=== PATIENT | male | born 1960 | race Caucasian/White ===

== ENCOUNTER 2017-02-06 16:32 | Emergency (ER) | payer OTHER ==
[2017-02-06] MEDS ORDERED: Sodium Chloride 0.9% 10 ML Syringe FLUSH PRN (17:33)
[2017-02-06] MEDS ORDERED: Sodium Chloride 0.9% 1,000 ML IV ONE (17:39)
[2017-02-06 18:11] LABS: CHLORIDE,CL 103 mmol/L (101-111); SODIUM,NA 137 mmol/L (135-145)
--- NOTE | 2017-02-06 18:49 | EDM.PDOC ---
Scribed by Linette Redding 02/06/17 1838 for Kinjal Miranda NP ED HPI GENERAL MEDICAL PROBLEM - General Chief Complaint: Medication Administration Stated Complaint: LAB LEVELS TOO HIGH Time Seen by Provider: 02/06/17 17:25 Source of Information: Reports: Patient, RN, RN Notes Reviewed History Limitations: Reports: No Limitations - History of Present Illness INITIAL COMMENTS - FREE TEXT/NARRATIVE: Patient presents to the ER stating he was called by [facility] and told to come to the ER immediately for elevated labs. He states he doctors in [place] with rheumatology and takes Methotrexate and folic acid. Onset: Today Severity: Moderate Improves with: Reports: None Worsens with: Reports: None Associated Symptoms: Reports: No Other Symptoms - Related Data Allergies Allergy/AdvReac Type Severity Reaction Status Date / Time rofecoxib Allergy Diarrhea Verified 03/02/13 06:21 Home Meds: Home Meds Aspirin/Calcium Carbonate/Mag [Aspirin Buffered 325 mg Tab] 325 mg PO DAILY [History] Naproxen Sodium [Aleve] 220 mg PO DAILY 03/02/13 [History] Naproxen Sodium [Aleve] 220 mg PO DAILY 03/02/13 [History] Temazepam [Restoril] 30 mg PO BEDTIME 03/02/13 [History] Valsartan [Diovan] 160 mg PO DAILY 03/02/13 [History] atorvaSTATin [Lipitor] 10 mg PO BEDTIME 03/02/13 [History] Past Medical History Cardiovascular History: Reports: High Cholesterol, Hypertension Musculoskeletal History: Reports: Back Pain, Chronic, Osteoarthritis - Past Surgical History Neurological Surgical History: Reports: Lumbar Spine, Spinal Fusion Social & Family History - Family History Family Medical History: Noncontributory - Tobacco Use Smoking Status *Q: Current Every Day Smoker Years of Tobacco use: 35 Packs/Tins Daily: 0.5 - Caffeine Use Caffeine Use: Reports: Coffee, Soda - Recreational Drug Use Recreational Drug Use: No - Living Situation & Occupation Living situation: Reports: with Family, Occupation: Retired ED ROS GENERAL - Review of Systems Review Of Systems: ROS reveals no pertinent complaints other than HPI. ED EXAM, GENERAL - Physical Exam Exam: See Below Exam Limited By: No Limitations General Appearance: Alert, WD/WN, No Apparent Distress Eye Exam: Bilateral Eye: Normal Inspection Ears: Normal External Exam, Normal Canal, Hearing Grossly Normal, Normal TMs Nose: Normal Inspection, Normal Mucosa, No Blood Throat/Mouth: Normal Inspection, Normal Lips, Normal Teeth, Normal Gums, Normal Oropharynx, Normal Voice, No Airway Compromise Head: Atraumatic, Normocephalic Neck: Normal Inspection, Supple, Non-Tender, Full Range of Motion Respiratory/Chest: No Respiratory Distress, Lungs Clear, Normal Breath Sounds, No Accessory Muscle Use, Chest Non-Tender Cardiovascular: Normal Peripheral Pulses, Regular Rate, Rhythm, No Edema, No Gallop, No JVD, No Murmur, No Rub GI/Abdominal: Normal Bowel Sounds, Soft, Non-Tender, No Organomegaly, No Distention, No Abnormal Bruit, No Mass (Male) Exam: Deferred Rectal (Males) Exam: Deferred Back Exam: Normal Inspection, Full Range of Motion, NT Extremities: Normal Inspection, Normal Range of Motion, Non-Tender, Normal Capillary Refill, No Pedal Edema Neurological: Alert, Oriented, CN II-XII Intact, Normal Cognition, Normal Gait, Normal Reflexes, No Motor/Sensory Deficits Psychiatric: Normal Affect, Normal Mood Skin Exam: Warm, Dry, Intact, Normal Color, No Rash Lymphatic: No Adenopathy EKG INTERPRETATION EKG Date: 02/06/17 Time: 17:49 Rhythm: NSR Rate (Beats/Min): 60 [place]: Normal P-Wave: Present QRS: Normal ST-T: Normal QT: Normal Comparison: NA - No Prior EKG Course - Vital Signs Last Recorded V/S: Last Vital Signs Temp 97.9 F 02/06/17 16:51 Pulse 87 02/06/17 16:51 Resp 18 02/06/17 16:51 BP 143/72 H 02/06/17 16:51 Pulse Ox 97 02/06/17 16:51 - Orders/Labs/Meds Orders: Active Orders 24 hr Category Date Time Status EKG Documentation Completion [RC] STAT Care 02/06/17 17:33 Active Peripheral IV Care [RC] . DIRECTED Care 02/06/17 17:34 Active Sodium Chloride 0.9% [Saline Flush] Med 02/06/17 17:33 Active 10 ml FLUSH ASDIRECTED PRN Peripheral IV Insertion Adult [OM.PC] Stat Oth 02/06/17 17:33 Ordered Medication Orders Sodium Chloride (Saline Flush) 10 ml FLUSH ASDIRECTED PRN PRN Reason: Keep Vein Open Labs: Laboratory Tests 02/06/17 02/06/17 Range/Units 17:45 17:45 WBC 11.2 H (5.0-10.0) 10^3/uL RBC 5.24 (4.6-6.2) 10^6/uL Hgb 15.8 (14.0-18.0) g/dL Hct 46.5 (40.0-54.0) % MCV 88.7 D (80-100) fL MCH 30.2 (27.0-34.0) pg MCHC 34.0 (33.0-35.0) g/dL Plt Count 199 (150-450) 10^3/uL Neut % (Auto) 65.1 (42.2-75.2) % Lymph % (Auto) 22.9 (20.5-50.1) % [place] % (Auto) 9.7 H (2-8) % Eos % (Auto) 1.9 (1.0-3.0) % Baso % (Auto) 0.4 (0.0-1.0) % Sodium 137 (135-145) mmol/L Potassium 4.0 (3.6-5.0) mmol/L Chloride 103 (101-111) mmol/L Carbon Dioxide 24.0 (21.0-31.0) mmol/L Anion Gap 14.0 BUN 19 H (7-18) mg/dL Creatinine 1.0 (0.6-1.3) mg/dL Est Cr Clr Drug Dosing 96.24 mL/min Estimated GFR (MDRD) > 60 BUN/Creatinine Ratio 19.00 Glucose 130 H (74-105) mg/dL Calcium 10.2 (8.4-10.2) mg/dl Total Bilirubin 0.6 (0.2-1.0) mg/dL AST 28 (10-42) IU/L ALT 38 (10-60) IU/L Alkaline Phosphatase 86 (42-121) IU/L Total Protein 6.5 L (6.7-8.2) g/dl Albumin 4.1 (3.2-5.5) g/dl Globulin 2.4 Albumin/Globulin Ratio 1.71 Meds: Medications Generic Name Dose Route Start Last Admin Trade Name Freq PRN Reason Stop Dose Admin Sodium Chloride 10 ml 12/28/17 17:33 Saline Flush FLUSH ASDIRECTED PRN Keep Vein Open Discontinued Medications Generic Name Dose Route Start Last Admin Trade Name Nathalie PRN Reason Stop Dose Admin Sodium Chloride 1,000 mls @ 999 mls/hr 02/06/17 17:39 02/06/17 17:49 Normal Saline IV 02/06/17 18:39 999 mls/hr .BOLUS ONE Administration - Re-Assessments/Exams Free Text/Narrative Re-Assessment/Exam: 02/06/17 18:44 1745 [facility] call called. Rheumatology gone for the day. Discussed the case with Hospitalist Dr. Salas. He advised that an EKG be completed and labs drawn again. He requested that he be called back when labs were completed. He concurred that 1 L of NS could be given. 1835: [facility] call called back with resulted labs. Dr. Salas is gone for the day and I talked to Dr. Skinner. He states the labs are ok for the patient to be discharged. He advises that the patient drink plenty of water at home and call his Rheumatology clinic tomorrow to discuss further lab testing or treatment. This was explained to the patient and his . Departure - Departure Time of Disposition: 18:47 Disposition: Home, Self-Care 01 Condition: Fair Clinical Impression: Hypercalcemia due to a drug, Hyperparathyroidism - Discharge Information Instructions: Parathyroid Hormone Test, Hypercalcemia Forms: ED Department Discharge Additional Instructions: Follow up with Dr. Groves tomorrow. Drink plenty of water at home. Return to the ER with any further problems. - My Orders Last 24 Hours: My Active Orders 02/06/17 17:33 EKG Documentation Completion [RC] STAT Sodium Chloride 0.9% [Saline Flush] 10 ml FLUSH ASDIRECTED PRN Peripheral IV Insertion Adult [OM.PC] Stat 02/06/17 17:34 Peripheral IV Care [RC] . DIRECTED - Assessment/Plan Last 24 Hours: My Active Orders 02/06/17 17:33 EKG Documentation Completion [RC] STAT Sodium Chloride 0.9% [Saline Flush] 10 ml FLUSH ASDIRECTED PRN Peripheral IV Insertion Adult [OM.PC] Stat 02/06/17 17:34 Peripheral IV Care [RC] . DIRECTED I have read and agree with the documentation that has been completed regarding this visit. By signing this record, I attest that the documentation was completed in my physical presence and is an accurate record of the encounter.
--- NOTE | 2017-03-04 09:01 | EKG ---
02/06/2017- ABIGAIL APPLE - EKG done on a 56-year-old male showing sinus rhythm with heart rate of 60 beats per minute, normal axis, normal intervals. No acute ST-T wave changes. [facility] /[id number]
== END 2017-02-06 19:02 | disposition home or self-care (01) ==
LOC: DL.ED 16:32
DX: E21.3 Hyperparathyroidism, unspecified (principal); I10 Essential (primary) hypertension; F17.210 Nicotine dependence, cigarettes, uncomplicated
CPT/HCPCS: 36415; 80053; 85025; 93005; 96360; 99283; J7030; 93010

== ENCOUNTER 2018-11-19 09:08 | Observation (INO) | payer OTHER ==
--- NOTE | 2018-11-19 09:18 | EDM.PDOC ---
ED HPI GENERAL MEDICAL PROBLEM - General Chief Complaint: Lower Extremity Injury/Pain Stated Complaint: L LEG INFECTION Time Seen by Provider: 11/19/18 09:18 Source of Information: Reports: Patient, Old Records, RN, RN Notes Reviewed History Limitations: Reports: No Limitations - History of Present Illness INITIAL COMMENTS - FREE TEXT/NARRATIVE: Pt presents to ER from home by POV with c/o an infection to the left knee, or skin over the left knee. Pt describes a simple pimple or infected hair on the left knee on Friday, Nov.15. Pt states he squeezed the pimple with his fingers and popped it, and thought no more about it. Later the same day the anterior left knee became painful and began to swell around the area of the pimple. The next morning the area was red and even more painful and swollen so he went to clinic and was prescribed Cephalexin and Bactrim DS by Dr. Luther. Pt states the redness has now spread down his leg almost to the ankle. Pt admits to fevers and chills. He denies purulent drainage. 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(s) Left Knee Pain Score (Numeric/FACES): 2 - Related Data Allergies Allergy/AdvReac Type Severity Reaction Status Date / Time rofecoxib Allergy Diarrhea Verified 11/19/18 09:13 Home Meds: Home Meds Aspirin/Calcium Carbonate/Mag [Aspirin Buffered 325 mg Tab] 325 mg PO DAILY [History] Naproxen Sodium [Aleve] 220 mg PO DAILY 03/02/13 [History] Temazepam [Restoril] 30 mg PO BEDTIME 03/02/13 [History] Valsartan [Diovan] 160 mg PO DAILY 03/02/13 [History] atorvaSTATin [Lipitor] 10 mg PO BEDTIME 03/02/13 [History] Cephalexin [Keflex] 500 mg PO QID 11/19/18 [History] Sulfamethoxazole/Trimethoprim [Bactrim Ds Tablet] 1 tab PO BID 11/19/18 [History ] traZODone HCl [Trazodone HCl] 100 mg PO DAILY 11/19/18 [History] Past Medical History Cardiovascular History: Reports: High Cholesterol, Hypertension Musculoskeletal History: Reports: Back Pain, Chronic, Osteoarthritis - Past Surgical History Neurological Surgical History: Reports: Lumbar Spine, Spinal Fusion Social & Family History - Family History Family Medical History: Noncontributory - Tobacco Use Smoking Status *Q: Current Every Day Smoker Tobacco Use Within Last Twelve Months: Cigarettes - Caffeine Use Caffeine Use: Reports: Coffee, Soda - Living Situation & Occupation Living situation: Reports: with Family, Occupation: Retired Review of Systems - Review of Systems Review Of Systems: ROS reveals no pertinent complaints other than HPI. ED EXAM, GENERAL - Physical Exam Exam: See Below Exam Limited By: No Limitations General Appearance: Alert, WD/WN, No Apparent Distress Throat/Mouth: Normal Voice Head: Atraumatic, Normocephalic Neck: Normal Inspection Respiratory/Chest: No Respiratory Distress, Lungs Clear, Normal Breath Sounds, No Accessory Muscle Use, Chest Non-Tender Cardiovascular: Normal Peripheral Pulses, Regular Rate, Rhythm, No Edema GI/Abdominal: Normal Bowel Sounds, Soft, Non-Tender Back Exam: Normal Inspection Extremities: Joint Swelling (left anterior knee with soft tissue swelling, increased warmth, and a dime sized excoriated lesion, no purulent drainage, erythema extends nearly to the ankle), Limited Range of Motion (left knee due to pain). No: Margaret's Sign Neurological: Alert, Oriented, No Motor/Sensory Deficits Psychiatric: Normal Mood Course - Vital Signs Last Recorded V/S: Last Vital Signs Temp 98.6 F 11/19/18 09:10 Pulse 74 11/19/18 09:10 Resp 16 11/19/18 09:10 BP 121/68 11/19/18 09:10 Pulse Ox 97 11/19/18 09:10 - Orders/Labs/Meds Orders: Active Orders 24 hr Category Date Time Status Peripheral IV Care [RC] . DIRECTED Care 11/19/18 09:27 Active Sodium Chloride 0.9% [Saline Flush] Med 11/19/18 09:27 Active 10 ml FLUSH ASDIRECTED PRN Peripheral IV Insertion Adult [OM.PC] Stat Oth 11/19/18 09:27 Ordered Medication Orders Sodium Chloride (Saline Flush) 10 ml FLUSH ASDIRECTED PRN PRN Reason: Keep Vein Open Last Admin: 11/19/18 09:33 Dose: 10 ml Labs: Laboratory Tests 11/19/18 11/19/18 11/19/18 Range/Units 09:33 09:33 09:33 WBC 13.8 H (5.0-10.0) 10^3/uL RBC 4.97 (4.6-6.2) 10^6/uL Hgb 14.8 (14.0-18.0) g/dL Hct 43.9 (40.0-54.0) % MCV 88.3 (80-100) fL MCH 29.8 (27.0-34.0) pg MCHC 33.7 (33.0-35.0) g/dL Plt Count 155 (150-450) 10^3/uL Neut % (Auto) 73.2 (42.2-75.2) % Lymph % (Auto) 15.8 L (20.5-50.1) % [place] % (Auto) 10.8 H (2-8) % Eos % (Auto) 0.1 L (1.0-3.0) % Baso % (Auto) 0.1 (0.0-1.0) % Sodium 139 (135-145) mmol/L Potassium 3.5 L (3.6-5.0) mmol/L Chloride 105 (101-111) mmol/L Carbon Dioxide 24.0 (21.0-31.0) mmol/L Anion Gap 13.5 BUN 20 H (7-18) mg/dL Creatinine 1.1 (0.6-1.3) mg/dL Est Cr Clr Drug Dosing TNP Estimated GFR (MDRD) > 60 BUN/Creatinine Ratio 18.18 Glucose 107 H (74-105) mg/dL Lactic Acid 1.5 (0.5-2.2) mmol/L Calcium 9.2 (8.4-10.2) mg/dl Total Bilirubin 0.8 (0.2-1.0) mg/dL AST 21 (10-42) IU/L ALT 21 (10-60) IU/L Alkaline Phosphatase 71 (42-121) IU/L C-Reactive Protein (0.0-1.3) mg/dL Total Protein 6.7 (6.7-8.2) g/dl Albumin 3.8 (3.2-5.5) g/dl Globulin 2.9 Albumin/Globulin Ratio 1.31 11/19/18 Range/Units 09:33 WBC (5.0-10.0) 10^3/uL RBC (4.6-6.2) 10^6/uL Hgb (14.0-18.0) g/dL Hct (40.0-54.0) % MCV (80-100) fL MCH (27.0-34.0) pg MCHC (33.0-35.0) g/dL Plt Count (150-450) 10^3/uL Neut % (Auto) (42.2-75.2) % Lymph % (Auto) (20.5-50.1) % [place] % (Auto) (2-8) % Eos % (Auto) (1.0-3.0) % Baso % (Auto) (0.0-1.0) % Sodium (135-145) mmol/L Potassium (3.6-5.0) mmol/L Chloride (101-111) mmol/L Carbon Dioxide (21.0-31.0) mmol/L Anion Gap BUN (7-18) mg/dL Creatinine (0.6-1.3) mg/dL Est Cr Clr Drug Dosing Estimated GFR (MDRD) BUN/Creatinine Ratio Glucose (74-105) mg/dL Lactic Acid (0.5-2.2) mmol/L Calcium (8.4-10.2) mg/dl Total Bilirubin (0.2-1.0) mg/dL AST (10-42) IU/L ALT (10-60) IU/L Alkaline Phosphatase (42-121) IU/L C-Reactive Protein 8.1 H (0.0-1.3) mg/dL Total Protein (6.7-8.2) g/dl Albumin (3.2-5.5) g/dl Globulin Albumin/Globulin Ratio Meds: Medications Generic Name Dose Route Start Last Admin Trade Name Freq PRN Reason Stop Dose Admin Sodium Chloride 10 ml 11/19/18 09:27 11/19/18 09:33 Saline Flush FLUSH 10 ml ASDIRECTED PRN Administration Keep Vein Open Discontinued Medications Generic Name Dose Route Start Last Admin Trade Name Freq PRN Reason Stop Dose Admin Diphenhydramine HCl 25 mg 11/19/18 09:36 11/19/18 10:03 Benadryl IVPUSH 11/19/18 09:37 25 mg ONETIME ONE Administration Sodium Chloride 1,000 mls @ 999 mls/hr 11/19/18 09:36 11/19/18 10:01 Normal Saline IV 11/19/18 10:36 999 mls/hr .BOLUS ONE Administration Vancomycin HCl 1,500 mg/ 500 mls @ 333.333 mls/hr 11/19/18 09:37 11/19/18 10: 08 Sodium Chloride IV 11/19/18 11:06 333.333 mls/hr ONETIME ONE Administration Iopamidol 100 ml 11/19/18 10:12 11/19/18 10:33 Isovue-300 (61%) IVPUSH 11/19/18 10:13 100 ml ONETIME ONE Administration Ketorolac Tromethamine 30 mg 11/19/18 09:36 11/19/18 10:03 Toradol IVPUSH 11/19/18 09:37 30 mg ONETIME ONE Administration - Radiology Interpretation Free Text/Narrative:: CT Left Knee: no focal abscess, foreign body(s), free air, or fractures; inflammation consistent with cellulitis per radiologist report. Departure - Departure Time of Disposition: 11:30 (admit to Dr. Escoto) Disposition: Admitted As Inpatient 64 Condition: Fair Clinical Impression: Cellulitis of left lower extremity - Discharge Information *PRESCRIPTION DRUG MONITORING PROGRAM REVIEWED*: No *COPY OF PRESCRIPTION DRUG MONITORING REPORT IN PATIENT WILL: No Forms: ED Department Discharge - My Orders Last 24 Hours: My Active Orders 11/19/18 09:27 Peripheral IV Care [RC] . DIRECTED Sodium Chloride 0.9% [Saline Flush] 10 ml FLUSH ASDIRECTED PRN Peripheral IV Insertion Adult [OM.PC] Stat - Assessment/Plan Last 24 Hours: My Active Orders 11/19/18 09:27 Peripheral IV Care [RC] . DIRECTED Sodium Chloride 0.9% [Saline Flush] 10 ml FLUSH ASDIRECTED PRN Peripheral IV Insertion Adult [OM.PC] Stat
[2018-11-19] MEDS ORDERED: Sodium Chloride 0.9% 10 ML Syringe FLUSH PRN ×2 (09:27→14:13)
[2018-11-19] MEDS ORDERED: diphenhydrAMINE 50 MG/ML SDV IVPUSH ONE (09:36)
[2018-11-19] MEDS ORDERED: Sodium Chloride 0.9% 1,000 ML IV ONE (09:36)
[2018-11-19] MEDS ORDERED: Ketorolac 30 MG/ML SDV IVPUSH ONE (09:36)
[2018-11-19 10:05] LABS: ANION GAP 13.5; CHLORIDE,CL 105 mmol/L (101-111); SODIUM,NA 139 mmol/L (135-145)
[2018-11-19] MEDS ORDERED: Iopamidol 612 MG/ML 100 ML Bottle IVPUSH ONE (10:12)
--- NOTE | 2018-11-19 10:56 | CT ---
EXAMINATION: Knee w Cont Lt SEX: Male AGE: 57 years CLINICAL HISTORY: 57-year-old 230 pound male smoker with "soft tissue infection" anteriorly left knee. Rule out foreign body, underlying osteomyelitis, joint effusion or fracture. Scan technique: Volume acquisition of data both knees (comparison right) obtained during intravenous administration 100 cc nonionic Isovue contrast while patient was lying supine on the Siemens multislice scanner [facility]. All data archived in the PACS system for storage, reformatting axial/sagittal/coronal planes and study (bone/soft tissue). INTERPRETATION: Homogeneously dense infrapatellar soft tissue swelling, anteriorly, left knee between the normal-appearing infrapatellar tendon (posteriorly) and edematous, thickened skin surface (anteriorly). No pockets of fluid suggesting abscess. No foreign bodies. No subcutaneous emphysema or air in the soft tissues. No left knee joint effusion. No inflammatory changes (osteomyelitis) patella or anterior tibia. No knee fracture or dislocation. CONCLUSION: Infrapatellar soft tissue swelling left knee. Probable cellulitis.
[2018-11-19] MEDS ORDERED: Acetaminophen 325 MG Tab PO PRN (13:18)
[2018-11-19] MEDS ORDERED: Sodium Chloride 0.9% 1,000 ML IV SCH (13:30)
--- NOTE | 2018-11-19 13:36 | PCM.HP ---
H&P History of Present Illness - General Date of Service: 11/19/18 Admit Problem/Dx: Admission Diagnosis/Problem Admission Diagnosis/Problem Cellulitis Source of Information: Patient History Limitations: Reports: No Limitations - History of Present Illness Initial Comments - Free Text/Narative: Jorden is 57 y/o M PMH of HTN, HLD who presented to the ED with pain and redness to the anterior left knee. Patient said he noted a small pimple on the anterior aspect of the left on Friday which he squeezed. Later on the day he noticed the area was more painful and red. The redness and pain got worse the neat morning so he presented to te clinic and was prescribed Cephalexin and Bactrim. He was told to go to the ED if the redness gets worse the next. This morning he noted the redness has spread to the ankle he decided to come to te ED. He denies fever, chills. No nausea or vomiting. Patient is not a diabetic. In the ED his vitals were unremarkable. Labs showed wbc of 13. CT of the left knee showed infrapatellar soft tissue swelling. Onset of Symptoms: Reports: Today, Gradual Duration of Symptoms: Reports: Day(s): Location: Reports: Lower Extremity, Left Quality: Reports: Dull Improves with: Reports: None Worsens with: Reports: None Associated Symptoms: Reports: No Other Symptoms Left Knee Pain Score (Numeric/FACES): 2 - Related Data Allergies/Adverse Reactions: Allergies Allergy/AdvReac Type Severity Reaction Status Date / Time rofecoxib Allergy Diarrhea Verified 11/19/18 12:50 Home Medications: Home Meds Aspirin/Calcium Carbonate/Mag [Aspirin Buffered 325 mg Tab] 325 mg PO DAILY [History] Naproxen Sodium [Aleve] 220 mg PO DAILY 03/02/13 [History] Temazepam [Restoril] 30 mg PO BEDTIME 03/02/13 [History] Valsartan [Diovan] 160 mg PO DAILY 03/02/13 [History] atorvaSTATin [Lipitor] 10 mg PO BEDTIME 03/02/13 [History] Cephalexin [Keflex] 500 mg PO QID 11/19/18 [History] Sulfamethoxazole/Trimethoprim [Bactrim Ds Tablet] 1 tab PO BID 11/19/18 [History ] traZODone HCl [Trazodone HCl] 100 mg PO DAILY 11/19/18 [History] Past Medical History Cardiovascular History: Reports: High Cholesterol, Hypertension Gastrointestinal History: Reports: GERD Musculoskeletal History: Reports: Back Pain, Chronic, Osteoarthritis - Past Surgical History Neurological Surgical History: Reports: Lumbar Spine, Spinal Fusion Social & Family History - Family History Family Medical History: Noncontributory - Tobacco Use Smoking Status *Q: Current Every Day Smoker Years of Tobacco use: 40 Packs/Tins Daily: 0.5 Used Tobacco, but Quit: No Second Hand Smoke Exposure: No - Caffeine Use Caffeine Use: Reports: Coffee, Soda, Tea - Recreational Drug Use Recreational Drug Use: No - Living Situation & Occupation Living situation: Reports: with Family, Occupation: Retired H&P Review of Systems - Review of Systems: Review Of Systems: See Below General: Reports: No Symptoms HEENT: Reports: No Symptoms Pulmonary: Reports: No Symptoms Cardiovascular: Reports: No Symptoms Gastrointestinal: Reports: No Symptoms Genitourinary: Reports: No Symptoms Musculoskeletal: Reports: No Symptoms, Other (left knee redness and pain) Skin: Reports: No Symptoms Psychiatric: Reports: No Symptoms Neurological: Reports: No Symptoms Hematologic/Lymphatic: Reports: No Symptoms Immunologic: Reports: No Symptoms Exam - Exam Exam: See Below (not toxic looking) - Vital Signs Vital Signs: Last Vital Signs Temp 98.1 F 11/19/18 12:10 Pulse 55 L 11/19/18 12:15 Resp 20 11/19/18 12:10 BP 131/73 11/19/18 12:15 Pulse Ox 97 11/19/18 12:10 Weight: 234 lb - Exam Quality Assessment: DVT Prophylaxis General: Alert, Oriented, 4 HEENT: PERRLA, Hearing Intact, Mucosa Moist & [place], Nares Patent, Normal Nasal Septum, Posterior Pharynx Clear, Conjunctiva Clear, EOMI, EACs Clear, TMs Clear Neck: Supple, Trachea Midline, 2 Lungs: Clear to Auscultation, Normal Respiratory Effort Cardiovascular: Regular Rate, Regular Rhythm GI/Abdominal Exam: Normal Bowel Sounds, Soft, Non-Tender, No Organomegaly, No Distention, No Abnormal Bruit, No Mass, Pelvis Stable (Male) Exam: No Hernia, Normal Inspection, Normal Prostate, Circumcised Rectal (Males) Exam: Normal Exam, Normal Rectal Tone, Prostate Normal Back Exam: Normal Inspection, Full Range of Motion, NT Extremities: Normal Range of Motion, No Pedal Edema, Normal Capillary Refill, Leg Pain, Redness, Other (superficial ulcer to the anterior knee with surrounding area of erythema extending to the left ankle. ) Skin: Warm, Dry, Intact Neurological: Cranial Nerves Intact, Reflexes Equal Bilateral Neuro Extensive - Mental Status: Alert, Oriented x3, Normal Mood/Affect, Normal Cognition Neuro Extensive - Motor, Sensory, Reflexes: CN II-XII Intact, Normal Gait, Normal Reflexes Psychiatric: Alert, Normal Affect, Normal Mood - Patient Data Lab Results Last 24 hrs: Laboratory Results - last 24 hr 11/19/18 11/19/18 11/19/18 Range/Units 09:33 09:33 09:33 WBC 13.8 H (5.0-10.0) 10^3/uL RBC 4.97 (4.6-6.2) 10^6/uL Hgb 14.8 (14.0-18.0) g/dL Hct 43.9 (40.0-54.0) % MCV 88.3 (80-100) fL MCH 29.8 (27.0-34.0) pg MCHC 33.7 (33.0-35.0) g/dL Plt Count 155 (150-450) 10^3/uL Neut % (Auto) 73.2 (42.2-75.2) % Lymph % (Auto) 15.8 L (20.5-50.1) % [place] % (Auto) 10.8 H (2-8) % Eos % (Auto) 0.1 L (1.0-3.0) % Baso % (Auto) 0.1 (0.0-1.0) % Sodium 139 (135-145) mmol/L Potassium 3.5 L (3.6-5.0) mmol/L Chloride 105 (101-111) mmol/L Carbon Dioxide 24.0 (21.0-31.0) mmol/L Anion Gap 13.5 BUN 20 H (7-18) mg/dL Creatinine 1.1 (0.6-1.3) mg/dL Est Cr Clr Drug Dosing TNP Estimated GFR (MDRD) > 60 BUN/Creatinine Ratio 18.18 Glucose 107 H (74-105) mg/dL Lactic Acid 1.5 (0.5-2.2) mmol/L Calcium 9.2 (8.4-10.2) mg/dl Total Bilirubin 0.8 (0.2-1.0) mg/dL AST 21 (10-42) IU/L ALT 21 (10-60) IU/L Alkaline Phosphatase 71 (42-121) IU/L C-Reactive Protein (0.0-1.3) mg/dL Total Protein 6.7 (6.7-8.2) g/dl Albumin 3.8 (3.2-5.5) g/dl Globulin 2.9 Albumin/Globulin Ratio 1.31 11/19/18 Range/Units 09:33 WBC (5.0-10.0) 10^3/uL RBC (4.6-6.2) 10^6/uL Hgb (14.0-18.0) g/dL Hct (40.0-54.0) % MCV (80-100) fL MCH (27.0-34.0) pg MCHC (33.0-35.0) g/dL Plt Count (150-450) 10^3/uL Neut % (Auto) (42.2-75.2) % Lymph % (Auto) (20.5-50.1) % [place] % (Auto) (2-8) % Eos % (Auto) (1.0-3.0) % Baso % (Auto) (0.0-1.0) % Sodium (135-145) mmol/L Potassium (3.6-5.0) mmol/L Chloride (101-111) mmol/L Carbon Dioxide (21.0-31.0) mmol/L Anion Gap BUN (7-18) mg/dL Creatinine (0.6-1.3) mg/dL Est Cr Clr Drug Dosing Estimated GFR (MDRD) BUN/Creatinine Ratio Glucose (74-105) mg/dL Lactic Acid (0.5-2.2) mmol/L Calcium (8.4-10.2) mg/dl Total Bilirubin (0.2-1.0) mg/dL AST (10-42) IU/L ALT (10-60) IU/L Alkaline Phosphatase (42-121) IU/L C-Reactive Protein 8.1 H (0.0-1.3) mg/dL Total Protein (6.7-8.2) g/dl Albumin (3.2-5.5) g/dl Globulin Albumin/Globulin Ratio Result Diagrams: 11/19/18 09:33 11/19/18 09:33 - Problem List (1) Cellulitis of left lower extremity SNOMED Code(s): 671374560 ICD Code: L03.116 - CELLULITIS OF LEFT LOWER LIMB Status: Acute Current Visit: No Problem List Initiated/Reviewed/Updated: Yes Orders Last 24hrs: Active Orders 24 hr Category Date Time Status Admission Diagnosis [ADT] Routine ADT 11/19/18 11:34 Ordered Patient Status [ADT] Routine ADT 11/19/18 11:34 Active Ambulate [RC] ASDIRECTED Care 11/19/18 13:18 Ordered Intake and Output [RC] QSHIFT Care 11/19/18 13:20 Ordered Notify Provider Vital Signs [RC] ASDIRECTED Care 11/19/18 13:20 Ordered Oxygen Therapy [RC] PRN Care 11/19/18 13:18 Ordered Peripheral IV Care [RC] . DIRECTED Care 11/19/18 09:27 Active VTE/DVT Education [RC] PER UNIT ROUTINE Care 11/19/18 13:18 Ordered Vital Signs [RC] Q4H Care 11/19/18 13:18 Ordered Regular Diet [DIET] Diet 11/19/18 Dinner Ordered BASIC METABOLIC PANEL,BMP [CHEM] DAILY Lab 11/20/18 07:00 Ordered BASIC METABOLIC PANEL,BMP [CHEM] DAILY Lab 11/21/18 07:00 Ordered BASIC METABOLIC PANEL,BMP [CHEM] DAILY Lab 11/22/18 07:00 Ordered CBC WITH AUTO DIFF [HEME] DAILY Lab 11/20/18 07:00 Ordered CBC WITH AUTO DIFF [HEME] DAILY Lab 11/21/18 07:00 Ordered CBC WITH AUTO DIFF [HEME] DAILY Lab 11/22/18 07:00 Ordered Acetaminophen [Tylenol] Med 11/19/18 13:18 Ordered 650 mg PO Q6H PRN Heparin Sodium Med 11/19/18 21:00 Ordered 5,000 units SUBCUT Q12HR Sodium Chloride 0.9% [Normal Saline] 1,000 ml Med 11/19/18 13:30 Ordered IV ASDIRECTED Sodium Chloride 0.9% [Saline Flush] Med 11/19/18 09:27 Active 10 ml FLUSH ASDIRECTED PRN Vancomycin 1 gm Med 11/19/18 23:00 Ordered Sodium Chloride 0.9% [Normal Saline] 250 ml IV Q8H Peripheral IV Insertion Adult [OM.PC] Stat Oth 11/19/18 09:27 Ordered Resuscitation Status Routine Resus Stat 11/19/18 13:18 Ordered Medication Orders Acetaminophen (Tylenol) 650 mg PO Q6H PRN PRN Reason: Pain (Mild 1-3)/fever Heparin Sodium (Porcine) (Heparin Sodium) 5,000 units SUBCUT Q12HR DAYAMI Sodium Chloride (Normal Saline) 1,000 mls @ 100 mls/hr IV ASDIRECTED DAYAMI Vancomycin HCl 1 gm/ Sodium (Chloride) 250 mls @ 167 mls/hr IV Q8H DAYAMI Sodium Chloride (Saline Flush) 10 ml FLUSH ASDIRECTED PRN PRN Reason: Keep Vein Open Last Admin: 11/19/18 09:33 Dose: 10 ml Assessment/Plan Comment:: #Left Knee cellulitis -CT of left knee showed infra [place] soft tissue swelling -Admit to medical floor -Monitor vitals -IVF -IV Vancomycin -Keep left leg on pillow -Tylenol for pain control #Leukocytosis -due to above -repeat cbc in the am #Hypokalemia -Replete PO #HTN -Continue home meds #HLD -Continue Lipitor
[2018-11-19] MEDS ORDERED: VALSARTAN 160 MG PO SCH ×2 (17:00→20:00)
[2018-11-19] MEDS: OMEPRAZOLE 20 MG PO SCH (17:30)
[2018-11-19] MEDS: ATORVASTATIN 80 MG PO SCH (17:32)
[2018-11-19] MEDS: HYDROCHLOROTHIAZIDE 12.5 MG PO SCH (17:33)
[2018-11-19] MEDS: Potassium Chloride 10 MEQ Tab.ER PO SCH (17:34)
[2018-11-19] MEDS: VANCOMYCIN/WATER FOR INJ (PEG) 1.5 GM in Premix Bag 1 BAG IV SCH (17:59)
[2018-11-19] MEDS: Heparin Sodium 5,000 Units/ML Vial SUBCUT SCH (20:34)
[2018-11-19] MEDS ORDERED: ASPIRIN 325 MG PO SCH (21:00)
[2018-11-19] MEDS ORDERED: TRAZODONE 100 MG PO SCH (21:00)
[2018-11-20] MEDS: VANCOMYCIN/WATER FOR INJ (PEG) 1.5 GM in Premix Bag 1 BAG IV SCH ×2 (01:55→10:47)
[2018-11-20] MEDS: OMEPRAZOLE 20 MG PO SCH (06:29)
[2018-11-20 07:08] LABS: ANION GAP 11.1; CHLORIDE,CL 108 mmol/L (101-111); SODIUM,NA 138 mmol/L (135-145)
[2018-11-20] MEDS: Heparin Sodium 5,000 Units/ML Vial SUBCUT SCH (08:25)
[2018-11-20] MEDS: Potassium Chloride 10 MEQ Tab.ER PO SCH (08:25)
[2018-11-20] MEDS: ATORVASTATIN 80 MG PO SCH (08:31)
[2018-11-20] MEDS: HYDROCHLOROTHIAZIDE 12.5 MG PO SCH (08:31)
[2018-11-20] MEDS ORDERED: ATORVASTATIN 80 MG PO SCH (08:49)
[2018-11-20] MEDS ORDERED: HYDROCHLOROTHIAZIDE 12.5 MG PO SCH (08:50)
[2018-11-20] MEDS ORDERED: VANCOMYCIN IV SCH (10:00)
[2018-11-20] MEDS ORDERED: WATER FOR INJ IV SCH (10:00)
--- NOTE | 2018-11-20 12:06 | PCM.DCSUM1 ---
Discharge Summary - Hospital Course Free Text/Narrative:: Jorden is 57 y/o M PMH of HTN, HLD who presented to the ED with pain and redness to the anterior left knee. He was admitted for left knee cellulitis. CT of the left knee showed infrapatellar soft tissue swelling. His symptoms improved with IV abx. He is being discharged home in a stable condition on PO abx. He will follow up with PCP in 5 days. Diagnosis: Stroke: No - Discharge Data Discharge Date: 11/20/18 Discharge Disposition: Home, Self-Care 01 Condition: Stable - Referral to Home Health Primary Care Physician: PCP None - Discharge Diagnosis/Problem(s) (1) Cellulitis of left lower extremity SNOMED Code(s): 986148429 ICD Code: L03.116 - CELLULITIS OF LEFT LOWER LIMB Status: Acute - Patient Instructions Diet: Heart Healthy Diet Driving: June Drive Today Showering/Bathing: June Shower Notify Provider of: Fever, Increased Pain, Swelling and Redness, Drainage - Discharge Plan *PRESCRIPTION DRUG MONITORING PROGRAM REVIEWED*: No *COPY OF PRESCRIPTION DRUG MONITORING REPORT IN PATIENT WILL: No Prescriptions/Med Rec: Clindamycin HCl 300 mg PO QID #28 capsule Home Medications: Home Meds Valsartan [Diovan] 160 mg PO BEDTIME 03/02/13 [History] Aspirin [Aspirin EC] 325 mg PO BEDTIME 11/19/18 [History] Omeprazole 20 mg PO ACBREAKFAST 11/19/18 [History] atorvaSTATin Calcium [Atorvastatin Calcium] 40 mg PO DAILY 11/19/18 [History] hydroCHLOROthiazide [Hydrochlorothiazide] 12.5 mg PO DAILY 11/19/18 [History] sulfaSALAzine [sulfaSALAzine DR] 500 mg PO BIDMEALS 11/19/18 [History] traZODone HCl [Trazodone HCl] 50 mg PO BEDTIME 11/19/18 [History] Clindamycin HCl 300 mg PO QID #28 capsule 11/20/18 [Rx] Oxygen Therapy Mode: Room Air Patient Handouts: Clindamycin capsules, Cellulitis, Adult, [id number] Referrals: PCP,None [Primary Care Provider] - - Discharge Summary/Plan Comment DC Time >30 min.: Yes - General Info Date of Service: 11/20/18 Admission Dx/Problem (Free Text: Admission Diagnosis/Problem Admission Diagnosis/Problem Cellulitis Functional Status: Reports: Pain Controlled - Review of Systems General: Reports: No Symptoms HEENT: Reports: No Symptoms Pulmonary: Reports: No Symptoms Cardiovascular: Reports: No Symptoms Gastrointestinal: Reports: No Symptoms Genitourinary: Reports: No Symptoms Musculoskeletal: Reports: No Symptoms Skin: Reports: No Symptoms Neurological: Reports: No Symptoms Psychiatric: Reports: No Symptoms - Patient Data Vitals - Most Recent: Last Vital Signs Temp 97.7 F 11/20/18 07:36 Pulse 96 11/20/18 07:36 Resp 18 11/20/18 07:36 BP 118/59 L 11/20/18 07:36 Pulse Ox 99 11/20/18 07:36 Weight - Most Recent: 234 lb I&O - Last 24 hours: Intake & Output 11/19/18 11/20/18 11/20/18 22:59 06:59 14:59 Intake Total 600 Output Total 200 700 Balance 400 -700 Lab Results - Last 24 hrs: Laboratory Results - last 24 hr 11/20/18 11/20/18 11/20/18 Range/Units 06:27 06:27 09:35 WBC 10.2 H (5.0-10.0) 10^3/uL RBC 4.56 L (4.6-6.2) 10^6/uL Hgb 13.7 L (14.0-18.0) g/dL Hct 40.7 (40.0-54.0) % MCV 89.3 (80-100) fL MCH 30.0 (27.0-34.0) pg MCHC 33.7 (33.0-35.0) g/dL Plt Count 148 L (150-450) 10^3/uL Neut % (Auto) 66.9 (42.2-75.2) % Lymph % (Auto) 19.6 L (20.5-50.1) % [place] % (Auto) 13.4 H (2-8) % Eos % (Auto) 0.0 L (1.0-3.0) % Baso % (Auto) 0.1 (0.0-1.0) % Sodium 138 (135-145) mmol/L Potassium 4.1 (3.6-5.0) mmol/L Chloride 108 (101-111) mmol/L Carbon Dioxide 23.0 (21.0-31.0) mmol/L Anion Gap 11.1 BUN 16 (7-18) mg/dL Creatinine 0.9 (0.6-1.3) mg/dL Est Cr Clr Drug Dosing 105.63 mL/min Estimated GFR (MDRD) > 60 Glucose 87 (74-105) mg/dL Calcium 8.6 (8.4-10.2) mg/dl Vancomycin Trough 15.2 H (10-15) ug/ml Med Orders - Current: Current Medications Acetaminophen (Tylenol) 650 mg PO Q6H PRN PRN Reason: Pain (Mild 1-3)/fever Last Admin: 11/19/18 17:35 Dose: 650 mg Aspirin (Aspirin) 325 mg PO BEDTIME [facility] Last Admin: 11/19/18 20:33 Dose: 325 mg Heparin Sodium (Porcine) (Heparin Sodium) 5,000 units SUBCUT Q12HR [facility] Last Admin: 11/20/18 08:25 Dose: 5,000 units Sodium Chloride (Normal Saline) 1,000 mls @ 100 mls/hr IV ASDIRECTED [facility] Last Admin: 11/19/18 18:10 Dose: 100 mls/hr Vancomycin HCl 1 gm/ Premix 200 mls @ 133.333 mls/hr IV Q8H [facility] Last Admin: 11/20/18 10:32 Dose: 130 mls/hr Valsartan 160 Mg Tab (*Own Med*) 1 each PO BEDTIME@2000 [facility] Last Admin: 11/19/18 20:33 Dose: 1 each Omeprazole (Omeprazole) 20 mg PO ACBREAKFAST [facility] Last Admin: 11/20/18 06:29 Dose: 20 mg Trazodone 100 Mg Tab (Own Med*) 0 each PO BEDTIME [facility] Last Admin: 11/19/18 20:33 Dose: 50 each Sulfasalazine 500 Mg (Tab *Own Med*) 1 each PO BIDMEALS [facility] Last Admin: 11/20/18 09:02 Dose: 1 each Atorvastatin 80 Mg (Tab *Own Med*) 0 each PO DAILY [facility] Last Admin: 11/20/18 09:04 Dose: Not Given Hydrochlorothiazide 12.5 Mg Tab *Own Med * 1 each PO DAILY [facility] Last Admin: 11/20/18 09:04 Dose: Not Given Potassium Chloride (Klor-Con 10) 20 meq PO BIDMEALS [facility] Last Admin: 11/20/18 08:25 Dose: 20 meq Sodium Chloride (Saline Flush) 10 ml FLUSH ASDIRECTED PRN PRN Reason: Keep Vein Open Vancomycin HCl (Pharmacy To Dose - Vancomycin) 1 dose .XX ASDIRECTED DAYAMI Discontinued Medications Diphenhydramine HCl (Benadryl) 25 mg IVPUSH ONETIME ONE Stop: 11/19/18 09:37 Last Admin: 11/19/18 10:03 Dose: 25 mg Sodium Chloride (Normal Saline) 1,000 mls @ 999 mls/hr IV .BOLUS ONE Stop: 11/19/18 10:36 Last Infusion: 11/19/18 18:10 Dose: Infused Vancomycin HCl 1,500 mg/ (Sodium Chloride) 500 mls @ 333.333 mls/hr IV ONETIME ONE Stop: 11/19/18 11:06 Last Infusion: 11/19/18 12:22 Dose: Infused Vancomycin HCl 1 gm/ Sodium (Chloride) 250 mls @ 167 mls/hr IV Q8H DAYAMI Vancomycin HCl 1.5 gm/ Premix 300 mls @ 200 mls/hr IV Q8H [facility] Last Admin: 11/20/18 10:47 Dose: Not Given Iopamidol (Isovue-300 (61%)) 100 ml IVPUSH ONETIME ONE Stop: 11/19/18 10:13 Last Admin: 11/19/18 10:33 Dose: 100 ml Ketorolac Tromethamine (Toradol) 30 mg IVPUSH ONETIME ONE Stop: 11/19/18 09:37 Last Admin: 11/19/18 10:03 Dose: 30 mg Valsartan 160 Mg Tab (*Own Med*) 1 each PO DAILY [facility] Last Admin: 11/19/18 19:23 Dose: Not Given Atorvastatin 80 Mg (Tab *Own Med*) 0 each PO DAILY [facility] Last Admin: 11/20/18 08:31 Dose: 1 each Hydrochlorothiazide 12.5 Mg Tab *Own Med * 1 each PO DAILY [facility] Last Admin: 11/20/18 08:31 Dose: 1 each Sodium Chloride (Saline Flush) 10 ml FLUSH ASDIRECTED PRN PRN Reason: Keep Vein Open Last Admin: 11/19/18 09:33 Dose: 10 ml - Exam General: Reports: Alert, Oriented HEENT: Reports: Pupils Equal, Pupils Reactive, EOMI, Mucous Membr. Moist/[place] Neck: Reports: Supple Lungs: Reports: Clear to Auscultation, Normal Respiratory Effort Cardiovascular: Reports: Regular Rate, Regular Rhythm GI/Abdominal Exam: Normal Bowel Sounds, Soft, Non-Tender, No Organomegaly, No Distention, No Abnormal Bruit, No Mass, Pelvis Stable (Male) Exam: No Hernia, Normal Inspection, Normal Prostate, Circumcised Rectal (Males) Exam: Normal Exam, Normal Rectal Tone, Prostate Normal Back Exam: Reports: Normal Inspection, Full Range of Motion Extremities: Normal Inspection, Normal Range of Motion, Non-Tender, No Pedal Edema, Normal Capillary Refill Skin: Reports: Warm, Dry, Intact Wound/Incisions: Reports: Healing Well Neurological: Reports: No New Focal Deficit Psy/Mental Status: Reports: Alert, Normal Affect, Normal Mood
[2018-11-20] MEDS ORDERED: Clindamycin HCl 150 MG Cap PO ONE (12:49)
[2018-11-20] MEDS ORDERED: Clindamycin HCl 150 MG Cap PO SCH (13:00)
[2018-11-20] MEDS ORDERED: SULFASALAZINE 500 MG PO SCH (18:00)
== END 2018-11-20 12:50 | disposition home or self-care (01) ==
LOC: DL.ED 09:08 → DL.MS 11:34
PROVIDERS: ADMIT Student in an Organized Health Care Education/Training Program; ATTEND Student in an Organized Health Care Education/Training Program
DX: L03.116 Cellulitis of left lower limb (principal); I10 Essential (primary) hypertension; E78.5 Hyperlipidemia, unspecified; D72.829 Elevated white blood cell count, unspecified; E87.6 Hypokalemia; F17.210 Nicotine dependence, cigarettes, uncomplicated; Z79.899 Other long term (current) drug therapy; Z88.8 Allergy status to other drugs, medicaments and biological substances; Z79.82 Long term (current) use of aspirin
CPT/HCPCS: 36415; 73701-LT; 80048; 80053; 80202; 83605; 85025; 86140; 96361; 96365; 96366; 96372; 96375; 99284-25; A9270-GY; G0378; J1200; J1644; J1885; J3370; J7030; J7040; Q9967